=== PATIENT | female | born 1945 | race Caucasian/White ===

== ENCOUNTER → 2018-09-17 | Outpatient (CLI) | payer MEDICARE, OTHER ==
[~2018-09-17] MED LIST: ALBU90OI61; ASPI325 PO; ATOR10; BUDE6HFA; CALC.25; CIPR250 PO; CITA20 PO; CRUTCH2 USE; CYCL10; ESTR2 PO; FURO40; GABA300; LEVSOD100 PO; LOSA50 PO; ONDA4ODT MM; OXYC5 PO; POTCHL10ER; RANI150 PO; ROSU10TA PO; VITA25000
[2018-09-17 13:07] LABS: BASOPHILS ABSOLUTE AUTO 0.03 K/mm3 (0.00-0.23); BASOPHILS PERCENT AUTO 0 % (0-2); EOSINOPHILS ABSOLUTE AUTO 0.16 K/mm3 (0.00-0.68); EOSINOPHILS PERCENT AUTO 2 % (0-6); Hematocrit 46.4 % (33.0-51.0); Hemoglobin 14.3 g/dL (11.5-16.0); IMMATURE GRAN ABSOLUTE AUTO 0.04 K/mm3 (0.00-0.10); IMMATURE GRAN PERCENT AUTO 1 % (0-1); LYMPHOCYTES ABSOLUTE AUTO 2.03 K/mm3 (0.84-5.20); LYMPHOCYTES PERCENT AUTO 24 % (21-46); MONOCYTES ABSOLUTE AUTO 0.61 K/mm3 (0.16-1.47); MONOCYTES PERCENT AUTO 7 % (4-13); Mean Corpuscular HGB 31.4 pg (26.0-34.0); Mean Corpuscular HGB Conc 30.8 g/dL (31.5-36.5); Mean Corpuscular Volume 102 fL (80-100); Mean Platelet Volume 9.6 fL (9.1-12.4); NEUTROPHILS ABSOLUTE AUTO 5.58 K/mm3 (1.96-9.15); NEUTROPHILS PERCENT AUTO 66 % (41-73); Platelet Count 256 K/mm3 (150-400); RDW Coefficient Variation 14.2 % (11.7-14.2); RDW Standard Deviation 53.9 fL (35.1-46.3); Red Blood Cell Count 4.55 M/mm3 (3.80-5.20); White Blood Cell Count 8.45 K/mm3 (4.00-11.30)
[2018-09-17 13:20] LABS: Albumin, Blood 3.5 g/dL (3.4-5.0); Albumin/Globulin Ratio 1.1 (0.8-1.8); Bilirubin, Total 0.4 mg/dL (0.1-1.0); Bun/Creatinine Ratio 9.3 (12.0-20.0); Calcium, Blood 9.2 mg/dL (8.5-10.1); Creatinine, Blood 1.08 mg/dL (0.40-1.00); Globulin, Blood 3.3 g/dL (2.2-4.0); Potassium, Blood 4.3 mmol/L (3.5-5.5); Total Protein, Blood 6.8 g/dL (6.4-8.2)
== END | disposition home or self-care (01) ==
LOC: LAB SHORT 13:04 → LAB EV 13:04
PROVIDERS: General Practice
DX: R42 Dizziness and giddiness (principal)
CPT/HCPCS: 80053; 85025

== ENCOUNTER 2019-05-10 13:33 | Emergency (ER) | payer MEDICARE, OTHER ==
[~2019-05-10] VITALS: Ht 162.6 cm; Wt 138.3 kg
[~2019-05-10 13:33] MED LIST changes: +ALBU90OI INH; -ALBU90OI61; -ATOR10; +ATOR10 PO; -BUDE6HFA; +BUDE6HFA INH; -CALC.25; +Calcitriol0.5 MCG PO; -FURO40; +FURO40 PO
[2019-05-10] MEDS ORDERED: Percocet 5-3251 EACH PO (15:46)
== END 2019-05-10 17:34 | disposition home or self-care (01) ==
LOC: ER 13:33
DX: S42.211A Unspecified displaced fracture of surgical neck of right humerus, initial encounter for closed fracture (principal); S60.222A Contusion of left hand, initial encounter; F32.9 Major depressive disorder, single episode, unspecified; E03.9 Hypothyroidism, unspecified; I10 Essential (primary) hypertension; J44.9 Chronic obstructive pulmonary disease, unspecified; K21.9 Gastro-esophageal reflux disease without esophagitis; G47.30 Sleep apnea, unspecified; E66.9 Obesity, unspecified; Z68.43 Body mass index [BMI] 50.0-59.9, adult; Z88.8 Allergy status to other drugs, medicaments and biological substances; Z79.899 Other long term (current) drug therapy; W01.10XA Fall on same level from slipping, tripping and stumbling with subsequent striking against unspecified object, initial encounter
CPT/HCPCS: 36415; 70450; 73030; 96374; 96375; 99284-25; J1170; J2405

== ENCOUNTER 2019-05-12 20:32 | Inpatient (IN) | payer MEDICARE, OTHER ==
[~2019-05-12] VITALS: Ht 162.6 cm; Wt 141.7 kg
[~2019-05-12 20:32] MED LIST changes: +Percocet 5-3251 EACH PO
[2019-05-12 21:09] LABS: BASOPHILS ABSOLUTE AUTO 0.03 K/mm3 (0.00-0.23); BASOPHILS PERCENT AUTO 0 % (0-2); EOSINOPHILS ABSOLUTE AUTO 0.02 K/mm3 (0.00-0.68); EOSINOPHILS PERCENT AUTO 0 % (0-6); Hematocrit 43.6 % (33.0-51.0); Hemoglobin 12.7 g/dL (11.5-16.0); IMMATURE GRAN ABSOLUTE AUTO 0.12 K/mm3 (0.00-0.10); IMMATURE GRAN PERCENT AUTO 1 % (0-1); LYMPHOCYTES ABSOLUTE AUTO 1.36 K/mm3 (0.84-5.20); LYMPHOCYTES PERCENT AUTO 11 % (21-46); MONOCYTES ABSOLUTE AUTO 1.41 K/mm3 (0.16-1.47); MONOCYTES PERCENT AUTO 12 % (4-13); Mean Corpuscular HGB 30.9 pg (26.0-34.0); Mean Corpuscular HGB Conc 29.1 g/dL (31.5-36.5); Mean Corpuscular Volume 106 fL (80-100); Mean Platelet Volume 9.7 fL (9.1-12.4); NEUTROPHILS ABSOLUTE AUTO 9.07 K/mm3 (1.96-9.15); NEUTROPHILS PERCENT AUTO 76 % (41-73); NRBC ABSOLUTE 0.03 K/mm3 (0.00-0.02); NRBC Auto 0.2 /100 WBC (0.0-0.2); Platelet Count 221 K/mm3 (150-400); RDW Coefficient Variation 13.6 % (11.7-14.2); RDW Standard Deviation 53.4 fL (35.1-46.3); Red Blood Cell Count 4.11 M/mm3 (3.80-5.20); White Blood Cell Count 12.01 K/mm3 (4.00-11.30)
[2019-05-12 21:25] LABS: Albumin, Blood 3.1 g/dL (3.4-5.0); Albumin/Globulin Ratio 0.8 (0.8-1.8); Bilirubin, Total 0.4 mg/dL (0.1-1.0); Bun/Creatinine Ratio 11.6 (12.0-20.0); Calcium, Blood 8.6 mg/dL (8.5-10.1); Creatinine, Blood 3.44 mg/dL (0.40-1.00); Globulin, Blood 3.8 g/dL (2.2-4.0); Potassium, Blood 5.3 mmol/L (3.5-5.5); Total Protein, Blood 6.9 g/dL (6.4-8.2); Troponin I 0.499 ng/mL (0.000-0.040)
[2019-05-12 23:07] LABS: Source, Urine Catheter
[2019-05-12 23:11] LABS: Blood, Urine 2+ (Neg); Glucose Qualitative, Urine Neg (Neg); Ketones, Urine 1+ (Neg); Leukocyte Esterase, Urine 2+ (Neg); Nitrite, Urine Neg (Neg); Protein, Urine 3+ (Neg); Specific Gravity, Urine 1.025 (1.003-1.022); Urobilinogen, Urine 1+ (Normal)
[2019-05-12 23:15] LABS: Appearance, Urine Hazy (Clear); Bilirubin, Urine 1+ (Neg); Color, Urine Amber (P-Yellow)
[2019-05-12 23:17] LABS: Bacteria Many /hpf; Red Blood Cells, Urine Rare /hpf (0-2); Squamous Epithelial Cells Many /hpf (Few); White Blood Cells, Urine 25-50 /hpf (0-5)
[2019-05-12 23:39] LABS: PCO2 Arterial 59.6 mmHg (35-45); PO2 Arterial 67.2 mmHg (80-100)
[2019-05-13 06:40] LABS: Thyroid Stimulating Hormone 2.3 uIU/mL (0.360-4.800); Troponin I 0.404 ng/mL (0.000-0.040)
[2019-05-13 10:34] LABS: CPK Creatine Kinase 112 U/L (26-193)
--- NOTE | 2019-05-13 11:34 | NUR ---
ECHOCARDIOGRAM COMPLETED
--- NOTE | 2019-05-13 11:45 | NUR ---
PT ARRIVAL. PT ARRIVED ON UNIT VIA GURNEY. PT WAS PULLED OVER TO THE BED WITH SLIDER SHEET. PT IS A&Ox4. PT WAS ADMITTED FOR ARF. PT'S VS STABLE ON ADMIT. PT HAS FRACTURED R HUMERUS. PT HAS GENERALIZED EDEMA AND HER BLE ARE RED AND COOL WITH 1+ -2+ PITTING EDEMA. PT HAS SEVERE YEAST RASH UNDER BREASTS, PANNUS AND GROIN AREA. GAXIOLA WAS PLACED D/T RETENTION. PT'S URINE IS DARK YELLOW AND CLOUDY. PT'S AND DAUGHTER AT THE BEDSIDE. WILL CONTINUE TO MONITOR.
[2019-05-13 12:12] LABS: PCO2 Arterial 56.1 mmHg (35-45); PO2 Arterial 70.6 mmHg (80-100); pH Blood Arterial 7.31 (7.35-7.45)
[2019-05-13 12:46] LABS: Bun/Creatinine Ratio 15.3 (12.0-20.0); Calcium, Blood 7.9 mg/dL (8.5-10.1); Potassium, Blood 4.9 mmol/L (3.5-5.5)
[2019-05-13 12:48] LABS: Albumin, Blood 2.8 g/dL (3.4-5.0); Anion Gap 5 mmol/L (6-16); Blood Urea Nitrogen 44 mg/dL (8-24); CO2, Blood 27 mmol/L (21-32); CPK Creatine Kinase 136 U/L (26-193); Chloride, Blood 105 mmol/L (98-108); Creatinine, Blood 2.94 mg/dL (0.40-1.00); Glomerular Filtration Rate 17 (60-); Glucose, Blood 106 mg/dL (70-99); Phosphorus, Blood 4.2 mg/dL (2.5-4.9); Potassium, Blood 4.9 mmol/L (3.5-5.5); Sodium, Blood 137 mmol/L (136-145); Troponin I 0.301 ng/mL (0.000-0.040)
--- NOTE | 2019-05-13 17:56 | NUR ---
SHIFT SUMMARY. PT HAS INCREASED O2 NEEDS, PT ARRIVED ON 2L NC AND IS CURRENTLY STABLE AT 3L NC. PT IS ENCOURAGED TO DEEP BREATH AND COUGH. PT AND FAMILY EDUCATED ON MOBILITY, AND INCREASED INDEPENDENCE IN ADLS FOR THE PT. PT'S VS STABLE. PT DENIES ANY CHEST PAIN/PRESSURE, N/V OR INCREASED SOB. PT WAS HELPED UP TO THE RECLINER CHAIR FOR DINNER AND ENCOURAGED TO GET UP FOR ALL MEALS. CALL LIGHT IN REACH, BED IS LOCKED AND LOW WILL CONTINUE TO MONITOR UNTIL REPORT IS GIVEN TO ONCOMING RN.
[2019-05-14 04:14] LABS: BASOPHILS ABSOLUTE AUTO 0.03 K/mm3 (0.00-0.23); BASOPHILS PERCENT AUTO 0 % (0-2); EOSINOPHILS PERCENT AUTO 3 % (0-6); Hemoglobin 10.1 g/dL (11.5-16.0); IMMATURE GRAN ABSOLUTE AUTO 0.04 K/mm3 (0.00-0.10); IMMATURE GRAN PERCENT AUTO 1 % (0-1); LYMPHOCYTES ABSOLUTE AUTO 1.49 K/mm3 (0.84-5.20); LYMPHOCYTES PERCENT AUTO 21 % (21-46); MONOCYTES PERCENT AUTO 14 % (4-13); Mean Corpuscular HGB 31.1 pg (26.0-34.0); Mean Corpuscular HGB Conc 29.7 g/dL (31.5-36.5); Mean Corpuscular Volume 105 fL (80-100); Mean Platelet Volume 10.1 fL (9.1-12.4); NEUTROPHILS ABSOLUTE AUTO 4.31 K/mm3 (1.96-9.15); NEUTROPHILS PERCENT AUTO 61 % (41-73); Platelet Count 174 K/mm3 (150-400); RDW Coefficient Variation 13.5 % (11.7-14.2); RDW Standard Deviation 52.3 fL (35.1-46.3); Red Blood Cell Count 3.25 M/mm3 (3.80-5.20); White Blood Cell Count 7.07 K/mm3 (4.00-11.30)
[2019-05-14 04:38] LABS: Albumin, Blood 2.5 g/dL (3.4-5.0); Anion Gap 5 mmol/L (6-16); Blood Urea Nitrogen 43 mg/dL (8-24); Bun/Creatinine Ratio 18.9 (12.0-20.0); CO2, Blood 25 mmol/L (21-32); Calcium, Blood 7.3 mg/dL (8.5-10.1); Chloride, Blood 110 mmol/L (98-108); Creatinine, Blood 2.28 mg/dL (0.40-1.00); Glomerular Filtration Rate 22 (60-); Glucose, Blood 85 mg/dL (70-99); Potassium, Blood 4.7 mmol/L (3.5-5.5); Sodium, Blood 140 mmol/L (136-145); Troponin I 0.243 ng/mL (0.000-0.040)
--- NOTE | 2019-05-14 06:04 | NUR ---
SHIFT SUMMARY PT HAS REMAINED AOC4 THROUGHOUT SHIFT. VSS. PLEASANT AND COOPERATIVE WITH CARE. PT HAS REMAINED ON BEDREST THROUGHOUT THE NIGHT, BUT HAS BEEN MOSTLY AGREEABLE TO REPOSITIONING. EDUCATION PROVIDED ON MOBILITY AND ENCOURAGEMENT PROVIDED FOR PATIENT TO ASSIST SELF WITH ADLs, PT VERBALIZED UNDERSTANDING. PT MEDICATED ONCE THROUGHOUT THE NIGHT FOR PAIN THAT DECREASED WITH ORDERED MEDICATIONS AND ICE PACK USE. O2 SATS HAVE REMAINED >90% ON 2-3L VIA NASAL CANNULA OR ON HOME CPAP WITH 3L BLEED IN. PT HAS LOOSE COUGH THAT SHE REPORTS TO BE NON-PRODUCTIVE AT THIS TIME, NO SPUTUM VISUALIZED. REDNESS NOTED TO PERINEAL FOLDS, PANNUS, AND BREAST FOLDS- NYSTATIN POWDER APPLIED. GAXIOLA REMAINS PATENT AND DRAINING TO GRAVITY. NO OTHER CHANGES NOTED FROM INITIAL ASSESSMENT. WILL CONTINUE TO MONITOR AND REPORT TO ONCOMING SHIFT RN. BED IN LOW POSITION, CALL LIGHT IN REACH.
--- NOTE | 2019-05-14 09:06 | NUR ---
AM NOTE. ASSUMED CARE OF PT APROX 0700, PT IS A&Ox4 AND WAS ADMITTED FOR AMS AND ARF. PT HAD RECENT FALL THAT RESULTED IN THE FACTURE OF HER RIGH ARM/SHOULDER. PT IS IN NSR IN THE 70'S-80'S, PT'S VS STABLE AT THIS TIME. PT HAS GENERALIZED AND NONPITTING EDEMA BODY WIDE, PT'S BLE ARE TIGHT, PINK AND WARM THIS AM. PT'S L/S CLEAR IN THE UPPER LOBES AND DIM T/O, PT IS ON 2 L NC WITH O2 SATS >93%. BT PRESENT AND HYPOACTIVE, ABD IS SOFT AND NONTENDER TO PALP. PT HAS NOT HAD BM SINCE 05/10, WILL TALK TO PROVIDER ABOUT BOWEL CARE. PT NEEDS ENCOURAGMENT TO PARTICIPATE IN HER ADLS, CARE AND MOBILITY. WILL CONTINUE TO MONITOR.
--- NOTE | 2019-05-14 18:16 | NUR ---
SHIFT SUMMARY. NO ACUTE NEGATIVE CHANGES NOTED THIS SHIFT. PT'S VS HAVE BEEN STABLE T/O SHIFT. PT WAS UP IN THE CHAIR FOR MOST OF THE DAY. PT HAS OPEN AREA UNDER HER LEFT BREAST, THE AREA WAS CLEANED AND MEDICATED PER EMAR, THE REDNESS TO HER OTHER BREAST AND GROIN AREA HAS IMPROVED SINCE YESTERDAY. PT'S GAXIOLA IS PATENT AND DRAINING DARK, CLOUDY YELLOW URINE TO GRAVITY. CALL LIGHT IN REACH, BED IS LOCKED AND LOW WILL CONTINUE TO MONITOR UNTIL REPORT IS GIVEN TO ONCOMING RN.
[2019-05-15 04:12] LABS: BASOPHILS ABSOLUTE AUTO 0.02 K/mm3 (0.00-0.23); BASOPHILS PERCENT AUTO 0 % (0-2); EOSINOPHILS ABSOLUTE AUTO 0.34 K/mm3 (0.00-0.68); EOSINOPHILS PERCENT AUTO 4 % (0-6); Hematocrit 37.8 % (33.0-51.0); IMMATURE GRAN ABSOLUTE AUTO 0.04 K/mm3 (0.00-0.10); IMMATURE GRAN PERCENT AUTO 1 % (0-1); LYMPHOCYTES ABSOLUTE AUTO 1.65 K/mm3 (0.84-5.20); LYMPHOCYTES PERCENT AUTO 21 % (21-46); MONOCYTES ABSOLUTE AUTO 1.12 K/mm3 (0.16-1.47); MONOCYTES PERCENT AUTO 14 % (4-13); Mean Corpuscular HGB 30.7 pg (26.0-34.0); Mean Corpuscular HGB Conc 29.1 g/dL (31.5-36.5); Mean Corpuscular Volume 106 fL (80-100); Mean Platelet Volume 9.9 fL (9.1-12.4); NEUTROPHILS ABSOLUTE AUTO 4.71 K/mm3 (1.96-9.15); NEUTROPHILS PERCENT AUTO 60 % (41-73); Platelet Count 191 K/mm3 (150-400); RDW Coefficient Variation 13.5 % (11.7-14.2); RDW Standard Deviation 52.6 fL (35.1-46.3); Red Blood Cell Count 3.58 M/mm3 (3.80-5.20); White Blood Cell Count 7.88 K/mm3 (4.00-11.30)
[2019-05-15 04:31] LABS: Bun/Creatinine Ratio 23.3 (12.0-20.0); Calcium, Blood 8.8 mg/dL (8.5-10.1); Creatinine, Blood 1.93 mg/dL (0.40-1.00); Potassium, Blood 5.5 mmol/L (3.5-5.5)
--- NOTE | 2019-05-15 06:22 | NUR ---
SHIFT SUMMARY PT HAS REMAINED AOX4 THROUGHOUT SHIFT. VSS. PLEASANT AND COOPERATIVE WITH CARE. PT HAS REMAINED IN BED THROUGHOUT THE NIGHT, BUT HAS BEEN COOPERATIVE WITH TURNING AND ASSISTS WITH SHIFTING SELF IN BED. PT CONTINUES TO REQUIRE ENCOURAGEMENT TO ASSIST IN ADLs, BUT MOTIVATION HAS BEEN IMPROVING. O2 SATS HAVE REMAINED >90% ON 2L VIA NASAL CANNULA OR ON CPAP WITH 2L BLEED IN. PT WITH TWO EPISODES OF DESATURATION TO THE MID-80s WHILE SLEEPING WITH BIPAP ON, BUT SATS QUICKLY RECOVERED TO >90% WITHIN 1 MINUTE. PT MEDICATED ONCE FOR PAIN THAT DECREASED WITH REPOSITIONING AND ORDERED MEDICATIONS. GAXIOLA REMAINS PATENT AND DRAINING TO GRAVITY. NO OTHER CHANGES NOTED FROM INITIAL ASSESSMENT. WILL CONTINUE TO MONITOR AND REPORT TO ONCOMING SHIFT RN. BED IN LOW POSITINO, CALL LIGHT IN REACH.
--- NOTE | 2019-05-15 08:55 | NUR ---
AM NOTE. ASSUMED CARE OF PT APROX 0700. PT IS A&Ox4 AND ADMITTED FOR ARF AND AMS. PT'S VS STABLE. PT DENIES ANY CHEST PAIN/PRESSURE, N/V OR INCREASED SOB. PT IS ON RA WITH O2 SATS >93%. PT'S RIGHT ARM IS IN SLING AT HER SIDE. PT IS IN NSR WITH RATES IN THE 60'S-80'S. PT HAS 2+ PITTING EDEMA TO HER BLE, 3+ TO THE TOPS OF HER FEET AND GENERALIZED EVERYWHERE ELSE. L/S CLEAR IN THE UPPER LOBES AND DIM IN THE MID AND LOWER LOBES. BT PRESENT AND HYPOACTIVE, ABD IS SLIGHTLY FIRM AND NONTENDER TO PALP. PT'S GAXIOLA IS PATENT AND DRAINING DARK YELLOW, CLOUDY URINE W/SEDIMENT. PT HAS YEAST RASH UNDER BREASTS AND HER PANNUS AND GROIN AREA, THESE AREAS WERE CLEANED AND NYSTATIN POWDER APLLIED PER EMAR. CALL LIGHT IN REACH, BED IS LOCKED AND LOW WILL CONTINUE TO MONITOR.
--- NOTE | 2019-05-15 17:50 | NUR ---
SHIFT SUMMARY. NO ACUTE NEGATIVE CHANGES NOTED THIS SHIFT. PT'S VS HAVE BEEN STABLE. PT WORKED WITH PT/OT AND WAS UP IN THE CHAIR FOR SEVERAL HOURS TODAY. PT'S GAXIOLA WAS D/C'D AT 1600 WNL. PER PT/OT THE PATIENT IS ABLE TO WALK TO THE BATHROOM AND SHOULD BE ENCOURAGED TO DO SO. PT AND FAMILY EDUCATED ON MOBILITY AND PT CONTINUING TO IMPROVE HER INDEPENDENCE. PT DENIES ANY CHEST PAIN/PRESSURE, N/V OR INCREASED SOB. PT HAS BEEN ON 1-3 L NC WITH O2 SATS >90%. CALL LIGHT IN REACH, BED IS LOCKED AND LOW WILL CONTINUE TO MONITOR UNTIL REPORT IS GIVEN TO ONCOMING RN.
[2019-05-16 04:01] LABS: Bun/Creatinine Ratio 23.9 (12.0-20.0); Calcium, Blood 9.1 mg/dL (8.5-10.1); Creatinine, Blood 1.59 mg/dL (0.40-1.00); Potassium, Blood 5.2 mmol/L (3.5-5.5)
--- NOTE | 2019-05-16 06:12 | NUR ---
SHIFT SUMMARY PT HAS REMAINED AOX4 THROUGHOUT SHIFT. VSS. PLEASANT AND COOPERATIVE WITH CARE. PT HAS RESTED WELL IN BED THROUGHOUT THE NIGHT, WAKING EASILY FOR CARE. CONTINUES TO AMBULATE WITH ONE PERSON ASSIST TO THE RESTROOM AND IS NOTED TO HAVE INCREASING STRENGTH. PT CONTINUES TO REQUIRE ENCOURAGEMENT AND MOTIVATION WITH ADLs, BUT DOES APPEAR EAGER TO REGAIN STRENGTH AND MOBILITY. O2 SATS HAVE REMAINED >90% ON 2L VIA NASAL CANNULA OR ON HOME CPAP WITH 5-10L BLEED IN. PT WITH OCCASIONAL DESATURATIONS WHILE SLEEPING TO THE MID 80s DURING PERIODS OF APNEA THAT LAST <1 MINUTE AND QUICKLY INCREASE TO >90%. MEDICATED TWICE FOR PAIN THAT DECREASED WITH ORDERED MEDICATIONS AND REPOSITIONING. NO OTHER CHANGES NOTED FROM INITIAL ASSESSMENT. WILL CONTINUE TO MONITOR AND REPORT TO ONCOMING SHIFT RN. BED IN LOW POSITION,CALL LIGHT IN REACH.
[2019-05-16] MEDS ORDERED: ASPI81CH PO (15:06)
[2019-05-16] MEDS ORDERED: Percocet 5-3251 EACH PO (15:06)
[2019-05-16] MEDS ORDERED: DOCU100 PO (15:07)
[2019-05-16] MEDS ORDERED: CARV3.125 PO (15:07)
[2019-05-16] MEDS ORDERED: Pedi-Dri 100,0060 GM TOP (15:08)
[2019-05-16] MEDS ORDERED: MIRALAX17 GM PO (15:08)
--- NOTE | 2019-05-16 17:12 | NUR ---
NURSING PCU DISCHARGE SUMMARY: Seen by PMD, discharge home d/o received. Pt, spouse, and son verbalized understanding of all written and verbal discharge instructions. PIV dc'd w/cath intact. Rx's called and faxed to [facility] pharmacy per pt request. No s/s of acute distress at time of xfer. Up to w/c w/SBA, tolerated well. Denied any questions/needs at that time.
== END 2019-05-16 16:12 | disposition home or self-care (01) | DRG 682 ==
LOC: ER 20:32 → PCU 05-13 03:20 → ERHOLD 05-13 03:20 → PCU 05-13 11:40
PROVIDERS: Family Medicine; Internal Medicine Gastroenterology; Physician Assistant; ADMIT Internal Medicine
DX: N17.9 Acute kidney failure, unspecified (principal); G92 Toxic encephalopathy; J96.21 Acute and chronic respiratory failure with hypoxia; I50.32 Chronic diastolic (congestive) heart failure; E87.2 Acidosis; N39.0 Urinary tract infection, site not specified; Z68.43 Body mass index [BMI] 50.0-59.9, adult; I13.0 Hypertensive heart and chronic kidney disease with heart failure and stage 1 through stage 4 chronic kidney disease, or unspecified chronic kidney disease; J44.9 Chronic obstructive pulmonary disease, unspecified; S42.301D Unspecified fracture of shaft of humerus, right arm, subsequent encounter for fracture with routine healing; E03.9 Hypothyroidism, unspecified; G47.33 Obstructive sleep apnea (adult) (pediatric); E78.00 Pure hypercholesterolemia, unspecified; I27.20 Pulmonary hypertension, unspecified; M19.90 Unspecified osteoarthritis, unspecified site; Z66 Do not resuscitate; E66.01 Morbid (severe) obesity due to excess calories; E78.5 Hyperlipidemia, unspecified; B37.2 Candidiasis of skin and nail; E86.9 Volume depletion, unspecified; R82.71 Bacteriuria; N18.9 Chronic kidney disease, unspecified
CPT/HCPCS: 36415; 36600; 51798; 70450; 71046; 73030; 74176; 80048; 80053; 80069; 81001; 82550; 82803; 83605; 83690; 83880; 84443; 84484; 85025; 87040; 87077; 87086; 87186; 93005; 93010; 93306; 93970; 94640; 94760; 94762; 96361; 96374; 96375; 96376; 97110; 97116; 97162; 97166; 97530; 97535; 99285-25; J0696; J1644; J3010; J7030

== ENCOUNTER → 2019-05-18 | Outpatient (CLI) | payer MEDICARE, OTHER ==
[~2019-05-18] MED LIST changes: +ASPI81CH PO; +CARV3.125 PO; +DOCU100 PO; +MIRALAX17 GM PO; +Pedi-Dri 100,0060 GM TOP
[2019-05-18 13:44] LABS: BASOPHILS ABSOLUTE AUTO 0.03 K/mm3 (0.00-0.23); BASOPHILS PERCENT AUTO 0 % (0-2); EOSINOPHILS ABSOLUTE AUTO 0.31 K/mm3 (0.00-0.68); EOSINOPHILS PERCENT AUTO 4 % (0-6); Hematocrit 38.2 % (33.0-51.0); Hemoglobin 11.5 g/dL (11.5-16.0); IMMATURE GRAN ABSOLUTE AUTO 0.05 K/mm3 (0.00-0.10); IMMATURE GRAN PERCENT AUTO 1 % (0-1); LYMPHOCYTES ABSOLUTE AUTO 1.54 K/mm3 (0.84-5.20); LYMPHOCYTES PERCENT AUTO 19 % (21-46); MONOCYTES ABSOLUTE AUTO 0.94 K/mm3 (0.16-1.47); MONOCYTES PERCENT AUTO 11 % (4-13); Mean Corpuscular HGB Conc 30.1 g/dL (31.5-36.5); Mean Platelet Volume 10.6 fL (9.1-12.4); NEUTROPHILS ABSOLUTE AUTO 5.35 K/mm3 (1.96-9.15); NEUTROPHILS PERCENT AUTO 65 % (41-73); Platelet Count 208 K/mm3 (150-400); RDW Coefficient Variation 13.5 % (11.7-14.2); RDW Standard Deviation 51.1 fL (35.1-46.3); Red Blood Cell Count 3.71 M/mm3 (3.80-5.20); White Blood Cell Count 8.22 K/mm3 (4.00-11.30)
[2019-05-18 13:47] LABS: Mean Corpuscular Volume 103 fL (80-100)
[2019-05-18 14:04] LABS: Albumin, Blood 3.1 g/dL (3.4-5.0); Albumin/Globulin Ratio 0.9 (0.8-1.8); Bilirubin, Total 0.5 mg/dL (0.1-1.0); Bun/Creatinine Ratio 19.2 (12.0-20.0); Calcium, Blood 9.7 mg/dL (8.5-10.1); Creatinine, Blood 1.2 mg/dL (0.40-1.00); Globulin, Blood 3.5 g/dL (2.2-4.0); Potassium, Blood 4.7 mmol/L (3.5-5.5); Total Protein, Blood 6.6 g/dL (6.4-8.2)
== END | disposition home or self-care (01) ==
LOC: LAB 13:34 → LAB SHORT 13:34
PROVIDERS: Family Medicine
DX: N17.9 Acute kidney failure, unspecified (principal)
CPT/HCPCS: 80053; 85025

== ENCOUNTER → 2020-06-27 | Outpatient (CLI) | payer MEDICARE, OTHER ==
[2020-06-27 19:02] LABS: Creatinine, Urine Random 73.4 mg/dL (27.00-270.00); Protein, Urine Random 39.9 mg/dL (0.0-11.9)
== END | disposition home or self-care (01) ==
LOC: LAB SHORT 10:45 → LAB 10:45
PROVIDERS: Internal Medicine
DX: N17.9 Acute kidney failure, unspecified (principal)
CPT/HCPCS: 82570; 84156

== ENCOUNTER → 2021-04-28 | Outpatient (CLI) | payer MEDICARE, OTHER | END | disposition home or self-care (01) | LOC: LAB SHORT 07:47 | DX: D22.61 Melanocytic nevi of right upper limb, including shoulder (principal) | CPT/HCPCS: 88305 ==

== ENCOUNTER → 2023-03-23 | Outpatient (CLI) | payer MEDICARE ==
[2023-03-23 13:40] LABS: Source, Urine Clean Catch
[2023-03-23 18:01] LABS: Appearance, Urine Hazy (Clear); Bilirubin, Urine Neg (Neg); Blood, Urine 1+ (Neg); Color, Urine Yellow (P-Yellow); Glucose Qualitative, Urine Neg (Neg); Ketones, Urine Neg (Neg); Leukocyte Esterase, Urine Neg (Neg); Nitrite, Urine Pos (Neg); Protein, Urine 2+ (Neg); Urobilinogen, Urine NORM (Normal)
[2023-03-23 18:22] LABS: Bacteria Many /hpf; Red Blood Cells, Urine 0-2 /hpf (0-2); Squamous Epithelial Cells Few /hpf (Few)
== END | disposition home or self-care (01) ==
LOC: LAB 10:30 → LAB SHORT 10:30
PROVIDERS: Hospitalist
DX: N18.31 Chronic kidney disease, stage 3a (principal)
CPT/HCPCS: 81001

== ENCOUNTER 2023-08-25 11:25 | Inpatient (IN) | payer MEDICARE ==
[~2023-08-25] VITALS: Ht 180.3 cm; Wt 125.5 kg
[2023-08-25 11:47] LABS: Base Excess Venous 7.3 mmol/L; Bicarbonate Venous 29.3 mmol/L (24.0-30.0); PCO2 Venous 62.1 mmHg (38-42); pH Blood Venous 7.34 (7.34-7.37)
[2023-08-25 12:04] LABS: BASOPHILS ABSOLUTE AUTO 0.02 K/mm3 (0.00-0.23); BASOPHILS PERCENT AUTO 0 % (0-2); EOSINOPHILS PERCENT AUTO 0 % (0-6); Hematocrit 41.3 % (33.0-51.0); Hemoglobin 12.6 g/dL (11.5-16.0); IMMATURE GRAN ABSOLUTE AUTO 0.11 K/mm3 (0.00-0.10); IMMATURE GRAN PERCENT AUTO 1 % (0-1); LYMPHOCYTES ABSOLUTE AUTO 1.36 K/mm3 (0.84-5.20); LYMPHOCYTES PERCENT AUTO 13 % (21-46); MONOCYTES ABSOLUTE AUTO 1.26 K/mm3 (0.16-1.47); MONOCYTES PERCENT AUTO 12 % (4-13); Mean Corpuscular HGB 30.7 pg (26.0-34.0); Mean Corpuscular HGB Conc 30.5 g/dL (31.5-36.5); Mean Corpuscular Volume 101 fL (80-100); Mean Platelet Volume 10.5 fL (9.1-12.4); NEUTROPHILS ABSOLUTE AUTO 8.13 K/mm3 (1.96-9.15); NEUTROPHILS PERCENT AUTO 75 % (41-73); Platelet Count 168 K/mm3 (150-400); RDW Coefficient Variation 13.1 % (11.7-14.2); RDW Standard Deviation 48.7 fL (35.1-46.3); White Blood Cell Count 10.88 K/mm3 (4.00-11.30)
[2023-08-25 12:11] LABS: Albumin, Blood 3.2 g/dL (3.4-5.0); Albumin/Globulin Ratio 0.8 (0.8-1.8); Bilirubin, Total 0.4 mg/dL (0.1-1.0); Bun/Creatinine Ratio 14.1 (12.0-20.0); Calcium, Blood 9.1 mg/dL (8.5-10.1); Creatinine, Blood 1.49 mg/dL (0.40-1.00); Globulin, Blood 4.2 g/dL (2.2-4.0); Potassium, Blood 3.8 mmol/L (3.5-5.5); Total Protein, Blood 7.4 g/dL (6.4-8.2)
[2023-08-25 12:40] LABS: Influenza B, PCR NEGATIVE (NEGATIVE); Resp Syncytial Virus, PCR NEGATIVE (NEGATIVE); SARS-Cov-2 (COVID-19) PCR, MMC NEGATIVE (NEGATIVE)
[2023-08-25 13:04] LABS: Influenza A, PCR POSITIVE (NEGATIVE)
[2023-08-25 15:00] VITALS: BP 123/52
--- NOTE | 2023-08-25 18:16 | NUR ---
SHIFT SUMMARY; ED ADMIT. SLID FROM RENLOE TO BED. A/A/OX4. 7L VIA NC O2 ON ARRIVAL. SATS 94% UP TO BESIDE COMMODE WITH 2 PERSON ASSIST. SPEAKING IN FULL SENTENCES BUT LABORED BREATHING WITH EXERTION. EDEMA BLE 3+ STATES HAS NEVER BEEN TOLD IF HAS CHF. NO ACUTE CHANGES, MEDS PER EMAR. WILL CONTINUE TO MONITOR AND TREAT UNTIL CHANGE OF SHIFT.
[2023-08-25 20:17] VITALS: BP 123/69
[2023-08-25] MEDS ORDERED: POTCHL20ER PO (23:34)
[2023-08-25 23:59] VITALS: BP 110/67
[2023-08-26 03:22] VITALS: BP 118/60
[2023-08-26 04:41] LABS: Hematocrit 40.1 % (33.0-51.0); Mean Corpuscular HGB 30.8 pg (26.0-34.0); Mean Corpuscular HGB Conc 29.9 g/dL (31.5-36.5); Mean Corpuscular Volume 103 fL (80-100); Mean Platelet Volume 10.2 fL (9.1-12.4); Platelet Count 134 K/mm3 (150-400); RDW Standard Deviation 49.5 fL (35.1-46.3); White Blood Cell Count 6.89 K/mm3 (4.00-11.30)
--- NOTE | 2023-08-26 05:09 | NUR ---
SHIFT SUMMARY THIS RN ASSUMED CARE OF PATIENT AT 1900. PT A&O X4. ABLE TO MAKE NEEDS KNOWN. SB/SR WITH PAC'S. ON 7L VIA NC WHILE AWAKE. ON BIPAP WITH 9L BLEED IN WHILE SLEEPING. BP STABLE. AFEBRILE. PT ABLE TO REPOSITION SELF IN BED. 1P ASSIST TO BSC. PITTING EDEMA IN BLE NOTED. LOW URINE OUTPUT NOTED; APPROXIMATELY 100MLS OUT THIS SHIFT. BLADDER SCAN OF 180MLS. MD PEÑA NOTIFIED. NO NEW ORDERS AT THIS TIME. PT RECEIVED BED BATH DURING THIS SHIFT. BED IN LOWEST POSITION AND CALL LIGHT WITHIN REACH. THIS RN WILL REPORT TO ONCSHAUNA REDD RN.
[2023-08-26 05:18] LABS: Albumin, Blood 2.9 g/dL (3.4-5.0); Albumin/Globulin Ratio 0.7 (0.8-1.8); Bilirubin, Total 0.3 mg/dL (0.1-1.0); Bun/Creatinine Ratio 16.7 (12.0-20.0); Calcium, Blood 9.2 mg/dL (8.5-10.1); Creatinine, Blood 1.74 mg/dL (0.40-1.00); Globulin, Blood 4.2 g/dL (2.2-4.0); Magnesium, Blood 2.3 mg/dL (1.6-2.4); Potassium, Blood 4.3 mmol/L (3.5-5.5); Total Protein, Blood 7.1 g/dL (6.4-8.2)
[2023-08-26 05:30] LABS: BAND PERCENT MAN 15 % (0-8); BASOPHILS PERCENT MAN 0 % (0-2); EOSINOPHILS PERCENT MAN 0 % (0-6); LYMPHOCYTES ABSOLUTE MAN 0.75 K/mm3 (0.84-5.20); LYMPHOCYTES PERCENT MAN 11 % (21-46); MONOCYTES PERCENT MAN 3 % (4-13); NEUTROPHILS ABSOLUTE MAN 5.92 K/mm3 (1.96-9.15); SEG NEUTROPHILS PERCENT MAN 71 % (41-73); TOTAL CELLS COUNTED 100
[2023-08-26 08:15] VITALS: BP 101/80
[2023-08-26 11:54] VITALS: BP 128/59
--- NOTE | 2023-08-26 14:36 | NUR ---
Pt. is awake and sitting up in a recliner when she welcomes my visit. Pt. is very pleasant. Facilitated a life review. Pt. shared a lengthy family history and considered matters of tiny and belief. Pt. displayed evidence of awareness, engagement, and great hope. Listened with interest and empathy. Prayed with the Pt. Pt. verbalized gratitude for the spiritual care visit and welcomed this patient accounts clerk to return.
[2023-08-26 17:20] VITALS: BP 149/65
--- NOTE | 2023-08-26 18:34 | NUR ---
SHIFT SUMMARY PT IS A&OX4, CALLS APPROPRAITLY, AN CAN MAKE HER NEEDS KNOWN. PT IS ABLE TO PREFORM TEACH BACK ON EDUCATION. SHE WAS ON 7L NC AT THE START OF THE SHIFT AND WAS TITRATED DOWN TO 4L NC. SHE WEARS THE BIPAP WHEN ASLEEP. SHE HAS DENIED ANY SOB. SHE IS SR 60'S-70'S ON TELE W/O ANY ANGINA OR CHEST PRESSURE. THE PT DID HAVE A HEADACHE THIS MORNING AND WAS MEDICATED PER EMAR. NO ACUTE EVENTS THIS SHIFT. FIRE IGNITION RISK WAS ASSESSED. SEE NOTES FOR ANY MORE UPDATES.
[2023-08-26 19:54] VITALS: BP 121/61
[2023-08-27 03:28] VITALS: BP 116/79
[2023-08-27 04:11] LABS: BASOPHILS ABSOLUTE AUTO 0.01 K/mm3 (0.00-0.23); BASOPHILS PERCENT AUTO 0 % (0-2); EOSINOPHILS PERCENT AUTO 0 % (0-6); IMMATURE GRAN ABSOLUTE AUTO 0.06 K/mm3 (0.00-0.10); IMMATURE GRAN PERCENT AUTO 1 % (0-1); LYMPHOCYTES ABSOLUTE AUTO 1.29 K/mm3 (0.84-5.20); LYMPHOCYTES PERCENT AUTO 17 % (21-46); MONOCYTES ABSOLUTE AUTO 0.35 K/mm3 (0.16-1.47); MONOCYTES PERCENT AUTO 5 % (4-13); Mean Corpuscular HGB 30.9 pg (26.0-34.0); Mean Corpuscular HGB Conc 30.8 g/dL (31.5-36.5); Mean Corpuscular Volume 101 fL (80-100); Mean Platelet Volume 10.8 fL (9.1-12.4); NEUTROPHILS PERCENT AUTO 78 % (41-73); NRBC ABSOLUTE 0.02 K/mm3 (0.00-0.02); NRBC Auto 0.3 /100 WBC (0.0-0.2); Platelet Count 170 K/mm3 (150-400); RDW Standard Deviation 48.1 fL (35.1-46.3); Red Blood Cell Count 3.88 M/mm3 (3.80-5.20); White Blood Cell Count 7.71 K/mm3 (4.00-11.30)
[2023-08-27 04:27] LABS: Albumin, Blood 3.1 g/dL (3.4-5.0); Anion Gap 5 mmol/L (6-16); Blood Urea Nitrogen 49 mg/dL (8-24); Bun/Creatinine Ratio 22.7 (12.0-20.0); CO2, Blood 35 mmol/L (21-32); Calcium, Blood 9.2 mg/dL (8.5-10.1); Chloride, Blood 97 mmol/L (98-108); Creatinine, Blood 2.16 mg/dL (0.40-1.00); Glomerular Filtration Rate 23 (60-); Glucose, Blood 198 mg/dL (70-99); Magnesium, Blood 2.6 mg/dL (1.6-2.4); Phosphorus, Blood 3.3 mg/dL (2.5-4.9); Potassium, Blood 4.4 mmol/L (3.5-5.5); Sodium, Blood 137 mmol/L (136-145)
--- NOTE | 2023-08-27 05:37 | NUR ---
SHIFT SUMMARY THIS RN ASSUMED CARE OF PATIENT AT 1900. PT A&O X4. ABLE TO MAKE NEEDS KNOWN. BP STABLE. ON 4-5L VIA NC WHILE AWAKE. BIPAP WITH SLEEP WITH 7L BLEED IN. AFEBRILE. SB/SR WITH PAC'S ON MONITOR, HR 50-60'S. PT UP TO BSC WITH 1P SBA. POWDER APPLIED TO FOLDS. BED IN LOWEST POSITION AND CALL LIGHT WITHIN REACH. THIS RN WILL REPORT TO ONCOMING DAYSHIFT RN.
[2023-08-27 08:15] VITALS: BP 145/60
[2023-08-27 15:24] VITALS: BP 135/92
--- NOTE | 2023-08-27 18:19 | NUR ---
SHIFT SUMMARY PATIENT TRANSFER FROM PCU THIS SHIFT, A/O X4. TOLERATING ABX WELL, ABLE TO TRANSFER 1 MIN ASSIST TO BSC. CARES ONGOING
[2023-08-27 19:53] VITALS: BP 124/80
[2023-08-28 03:02] VITALS: BP 153/79
[2023-08-28 05:09] LABS: BASOPHILS ABSOLUTE AUTO 0.03 K/mm3 (0.00-0.23); BASOPHILS PERCENT AUTO 0 % (0-2); EOSINOPHILS PERCENT AUTO 0 % (0-6); Hemoglobin 11.6 g/dL (11.5-16.0); IMMATURE GRAN ABSOLUTE AUTO 0.18 K/mm3 (0.00-0.10); IMMATURE GRAN PERCENT AUTO 2 % (0-1); LYMPHOCYTES ABSOLUTE AUTO 1.11 K/mm3 (0.84-5.20); LYMPHOCYTES PERCENT AUTO 13 % (21-46); MONOCYTES ABSOLUTE AUTO 0.57 K/mm3 (0.16-1.47); MONOCYTES PERCENT AUTO 7 % (4-13); Mean Corpuscular HGB 30.2 pg (26.0-34.0); Mean Corpuscular HGB Conc 29.7 g/dL (31.5-36.5); Mean Corpuscular Volume 102 fL (80-100); Mean Platelet Volume 10.2 fL (9.1-12.4); NEUTROPHILS ABSOLUTE AUTO 6.58 K/mm3 (1.96-9.15); NEUTROPHILS PERCENT AUTO 78 % (41-73); NRBC ABSOLUTE 0.02 K/mm3 (0.00-0.02); NRBC Auto 0.2 /100 WBC (0.0-0.2); Platelet Count 213 K/mm3 (150-400); RDW Coefficient Variation 12.7 % (11.7-14.2); RDW Standard Deviation 47.3 fL (35.1-46.3); Red Blood Cell Count 3.84 M/mm3 (3.80-5.20); White Blood Cell Count 8.47 K/mm3 (4.00-11.30)
[2023-08-28 05:54] LABS: Anion Gap 3 mmol/L (6-16); Blood Urea Nitrogen 59 mg/dL (8-24); Bun/Creatinine Ratio 30.1 (12.0-20.0); CO2, Blood 37 mmol/L (21-32); Calcium, Blood 9.5 mg/dL (8.5-10.1); Chloride, Blood 99 mmol/L (98-108); Creatinine, Blood 1.96 mg/dL (0.40-1.00); Glomerular Filtration Rate 26 (60-); Glucose, Blood 183 mg/dL (70-99); Phosphorus, Blood 4.4 mg/dL (2.5-4.9); Potassium, Blood 4.6 mmol/L (3.5-5.5); Sodium, Blood 139 mmol/L (136-145)
[2023-08-28 08:02] VITALS: BP 145/47
--- NOTE | 2023-08-28 08:04 | NUR ---
SHIFT SUMMARY NOC PT A/O X 4. PLEASANT AND COOPERATIVE WITH CARE. NO ACUTE CHANGES TO REPORT. PT ON O2 4L/NC SPO2 >92%. ON TELE RUNNING SINUS RHYTHM IN LOW 60'S. USED CPAP FOR SLEEPING LAST NIGHT. VSS. PT CURRENTLY RESTING WITH BED IN LOWEST POSITION, AND CALL LIGHT WITHIN REACH.
[2023-08-28] MEDS ORDERED: ACET325 PO (15:28)
[2023-08-28] MEDS ORDERED: FAMO20 PO (15:29)
[2023-08-28] MEDS ORDERED: Carvedilol3.125 MG PO (15:29)
[2023-08-28] MEDS ORDERED: Celexa20 MG PO (15:29)
[2023-08-28] MEDS ORDERED: Prednisone10 MG PO (15:32)
--- NOTE | 2023-08-28 16:59 | NUR ---
DISCHARGE SUMMARY PATIENT DISCHARGED THIS SHIFT WITH TO DRIVE. IV REMOVED PRIOR TO DISCHARGE, NO COMPLICATIONS. MEDS FAXED TO [facility]. DISCHARGE PACKET GIVEN AND DISCUSSED, QUESTIONS ANSWERED, VERBALIZED UNDERSTANDING. VSS. BACK TO OXYGEN DEMAND BASELINE.
== END 2023-08-28 15:48 | disposition home health service (06) | DRG 291 ==
LOC: ER 11:25 → PCU 14:15 → MEDS 08-27 15:17
PROVIDERS: Emergency Medicine; ADMIT Family Medicine
PROC: 5A09457 Assistance with Respiratory Ventilation, 24-96 Consecutive Hours, Continuous Positive Airway Pressure (ICD-10-PCS; principal; 2023-08-25)
DX: I11.0 Hypertensive heart disease with heart failure (principal); I50.33 Acute on chronic diastolic (congestive) heart failure; J96.21 Acute and chronic respiratory failure with hypoxia; J44.0 Chronic obstructive pulmonary disease with (acute) lower respiratory infection; N17.9 Acute kidney failure, unspecified; Z66 Do not resuscitate; J10.1 Influenza due to other identified influenza virus with other respiratory manifestations; F32.A Depression, unspecified; G89.29 Other chronic pain; M54.9 Dorsalgia, unspecified; E03.9 Hypothyroidism, unspecified; I27.20 Pulmonary hypertension, unspecified; F41.9 Anxiety disorder, unspecified; Z79.890 Hormone replacement therapy; Z79.82 Long term (current) use of aspirin; Z11.52 Encounter for screening for COVID-19; Z99.81 Dependence on supplemental oxygen
CPT/HCPCS: 0241U; 36415; 71045; 80053; 80069; 82803; 83735; 83880; 84484; 85025; 93005; 93010; 93306; 94640; 94644; 94660; 94664; 94762; 96374; 96375; 99285-25; A9270; J0456; J1644; J1940; J2930; J7050

== ENCOUNTER 2023-09-02 18:05 | Emergency (ER) | payer MEDICARE ==
[~2023-09-02] VITALS: Ht 162.6 cm; Wt 113.4 kg
[~2023-09-02 18:05] MED LIST changes: +ACET325 PO; +Carvedilol3.125 MG PO; +Celexa20 MG PO; +FAMO20 PO; +POTCHL20ER PO; +Prednisone10 MG PO
[2023-09-02 18:35] LABS: BASOPHILS ABSOLUTE AUTO 0.01 K/mm3 (0.00-0.23); BASOPHILS PERCENT AUTO 0 % (0-2); EOSINOPHILS PERCENT AUTO 0 % (0-6); Hematocrit 44.1 % (33.0-51.0); Hemoglobin 13.6 g/dL (11.5-16.0); IMMATURE GRAN ABSOLUTE AUTO 0.38 K/mm3 (0.00-0.10); IMMATURE GRAN PERCENT AUTO 4 % (0-1); LYMPHOCYTES ABSOLUTE AUTO 1.04 K/mm3 (0.84-5.20); LYMPHOCYTES PERCENT AUTO 12 % (21-46); MONOCYTES ABSOLUTE AUTO 0.24 K/mm3 (0.16-1.47); MONOCYTES PERCENT AUTO 3 % (4-13); Mean Corpuscular HGB 30.2 pg (26.0-34.0); Mean Corpuscular HGB Conc 30.8 g/dL (31.5-36.5); Mean Corpuscular Volume 98 fL (80-100); Mean Platelet Volume 10.1 fL (9.1-12.4); NEUTROPHILS ABSOLUTE AUTO 6.94 K/mm3 (1.96-9.15); NEUTROPHILS PERCENT AUTO 81 % (41-73); Platelet Count 307 K/mm3 (150-400); RDW Coefficient Variation 12.8 % (11.7-14.2); RDW Standard Deviation 46.3 fL (35.1-46.3); Red Blood Cell Count 4.51 M/mm3 (3.80-5.20); White Blood Cell Count 8.61 K/mm3 (4.00-11.30)
[2023-09-02 22:38] VITALS: BP 157/74
[2023-09-03] MEDS ORDERED: ALBU2.5V5 INH (01:08)
[2023-09-03] MEDS ORDERED: COMPRESSOR NEB1 EACH INH (01:08)
== END 2023-09-03 02:30 | disposition home or self-care (01) ==
LOC: ER 18:05
PROVIDERS: Emergency Medicine
DX: J44.89 Other specified chronic obstructive pulmonary disease (principal); J10.1 Influenza due to other identified influenza virus with other respiratory manifestations; E05.00 Thyrotoxicosis with diffuse goiter without thyrotoxic crisis or storm; I10 Essential (primary) hypertension; J96.01 Acute respiratory failure with hypoxia; J44.1 Chronic obstructive pulmonary disease with (acute) exacerbation; R91.8 Other nonspecific abnormal finding of lung field; Z79.52 Long term (current) use of systemic steroids; Z79.899 Other long term (current) drug therapy; Z88.8 Allergy status to other drugs, medicaments and biological substances; Z87.01 Personal history of pneumonia (recurrent)
CPT/HCPCS: 36415; 71046; 80048; 83880; 85025; 93005; 93010; 94640; 94664; 99283-25

== ENCOUNTER 2024-08-18 19:26 | Emergency (ER) | payer MEDICARE, OTHER ==
[~2024-08-18] VITALS: Ht 162.6 cm; Wt 123.4 kg
[~2024-08-18 19:26] MED LIST changes: +ALBU2.5V5 INH; +COMPRESSOR NEB1 EACH INH
[2024-08-18 20:13] VITALS: BP 112/89
[2024-08-18 20:37] LABS: BASOPHILS ABSOLUTE AUTO 0.04 K/mm3 (0.00-0.23); BASOPHILS PERCENT AUTO 1 % (0-2); EOSINOPHILS ABSOLUTE AUTO 0.23 K/mm3 (0.00-0.68); EOSINOPHILS PERCENT AUTO 3 % (0-6); Hematocrit 37.8 % (33.0-51.0); Hemoglobin 10.9 g/dL (11.5-16.0); IMMATURE GRAN ABSOLUTE AUTO 0.04 K/mm3 (0.00-0.10); IMMATURE GRAN PERCENT AUTO 1 % (0-1); LYMPHOCYTES ABSOLUTE AUTO 1.85 K/mm3 (0.84-5.20); LYMPHOCYTES PERCENT AUTO 24 % (21-46); MONOCYTES ABSOLUTE AUTO 0.78 K/mm3 (0.16-1.47); MONOCYTES PERCENT AUTO 10 % (4-13); Mean Corpuscular HGB 31.1 pg (26.0-34.0); Mean Corpuscular HGB Conc 28.8 g/dL (31.5-36.5); Mean Corpuscular Volume 108 fL (80-100); Mean Platelet Volume 9.9 fL (9.1-12.4); NEUTROPHILS ABSOLUTE AUTO 4.66 K/mm3 (1.96-9.15); NEUTROPHILS PERCENT AUTO 61 % (41-73); Platelet Count 191 K/mm3 (150-400); RDW Coefficient Variation 13.8 % (11.7-14.2); RDW Standard Deviation 54.4 fL (35.1-46.3)
[2024-08-18 21:08] LABS: Albumin, Blood 3.5 g/dL (3.4-5.0); Albumin/Globulin Ratio 1.1 (0.8-1.8); Bilirubin, Total 0.4 mg/dL (0.1-1.0); Bun/Creatinine Ratio 12.3 (12.0-20.0); Calcium, Blood 9.9 mg/dL (8.5-10.1); Creatinine, Blood 1.06 mg/dL (0.40-1.00); Globulin, Blood 3.1 g/dL (2.2-4.0); Potassium, Blood 4.6 mmol/L (3.5-5.5); Total Protein, Blood 6.6 g/dL (6.4-8.2)
[2024-08-18 22:00] LABS: International Normalized Ratio 0.96; Prothrombin Time Results 10.3 Sec (9.7-11.5)
[2024-08-18 22:07] LABS: Source, Urine Clean Catch
[2024-08-18 22:10] LABS: Bilirubin, Urine Neg (Neg); Blood, Urine 1+ (Neg); Glucose Qualitative, Urine Neg (Neg); Ketones, Urine Neg (Neg); Leukocyte Esterase, Urine 1+ (Neg); Nitrite, Urine Pos (Neg); Protein, Urine 3+ (Neg); Urobilinogen, Urine NORM (Normal)
[2024-08-18 22:20] LABS: Appearance, Urine Hazy (Clear); Color, Urine Yellow (P-Yellow)
[2024-08-18 22:21] LABS: Bacteria Many /hpf; Red Blood Cells, Urine 0-2 /hpf (0-2); Squamous Epithelial Cells Not Seen /hpf (Few)
[2024-08-19] MEDS ORDERED: Trimethoprim/Sulfamethoxazole DS Tab PO ONE (00:40)
[2024-08-19] MEDS ORDERED: SULTRIDS PO (01:56)
== END 2024-08-19 02:35 | disposition home or self-care (01) ==
LOC: ER 19:26
PROVIDERS: Student in an Organized Health Care Education/Training Program
DX: N30.00 Acute cystitis without hematuria (principal); R53.1 Weakness; M54.50 Low back pain, unspecified; J44.89 Other specified chronic obstructive pulmonary disease; I10 Essential (primary) hypertension; E03.9 Hypothyroidism, unspecified; Z88.8 Allergy status to other drugs, medicaments and biological substances; Z79.890 Hormone replacement therapy; Z79.82 Long term (current) use of aspirin; Z79.01 Long term (current) use of anticoagulants; Z79.899 Other long term (current) drug therapy; W18.30XA Fall on same level, unspecified, initial encounter
CPT/HCPCS: 70450; 72131; 80053; 81001; 85025; 85610; 85730; 87077; 87086; 87186; 93005; 93010; 99284-25; A9270

== ENCOUNTER → 2024-09-11 | Outpatient (CLI) | payer MEDICARE, OTHER ==
[~2024-09-11] MED LIST changes: +SULTRIDS PO
[2024-09-11 10:18] LABS: Source, Urine Clean Catch
[2024-09-11 12:36] LABS: Appearance, Urine Clear (Clear); Bilirubin, Urine Neg (Neg); Blood, Urine Neg (Neg); Color, Urine Yellow (P-Yellow); Glucose Qualitative, Urine Neg (Neg); Ketones, Urine Neg (Neg); Leukocyte Esterase, Urine 1+ (Neg); Nitrite, Urine Neg (Neg); Protein, Urine 3+ (Neg); Urobilinogen, Urine 1+ (Normal)
[2024-09-11 12:47] LABS: Squamous Epithelial Cells Many /hpf (Few)
[2024-09-11 12:48] LABS: Bacteria Many /hpf; Red Blood Cells, Urine 0-2 /hpf (0-2)
== END ==
LOC: LAB 10:06 → LAB SHORT 10:06
PROVIDERS: Family Medicine
DX: N39.0 Urinary tract infection, site not specified (principal)
CPT/HCPCS: 81001; 87077; 87086; 87186